=== PATIENT | female | born 1995 | race Caucasian/White ===

== ENCOUNTER 2023-11-26 15:54 | Emergency (ER) | payer MEDICAID, SELFPAY ==
[2023-11-26 15:57] VITALS: BP 126/74; PULSE 99; RESP 13; TEMP 36.5; O2SAT 99
[2023-11-26] MEDS: Ibuprofen 600 MG TAB PO (17:38)
[2023-11-26 18:20] LABS: Bilirubin Negative (Negative); Blood Negative (Negative); Clarity Clear (Clear); Glucose Negative (Negative); Ketones Negative (Negative); Leukocyte Esterase Negative (Negative); Nitrite Negative (Negative); Specific Gravity >= 1.030 (1.005-1.025); Urobilinogen 0.2 mg/dL (Up to 0.2); pH 5.5 (5-8)
[2023-11-26 18:22] LABS: Bacteria Negative HPF (Negative); C & S Indicated? No; Casts Negative LPF (Negative); Crystals Negative HPF (Negative); Epithelial Cells Rare HPF (Negative); Mucus Negative (Negative); RBC Negative HPF (0-2); WBC Negative HPF (0-5)
[2023-11-26] MEDS: Lidocaine 2% Jelly 11 ML SYR UR (18:55)
[2023-11-26] MEDS: predniSONE 20 MG TAB 40 MG PO (18:55)
[2023-11-26] MEDS: Cephalexin 500 MG CAP, 4 CAPS/BTL PO (18:55)
[2023-11-26 18:56] VITALS: BP 126/74; PULSE 99; RESP 13; TEMP 36.5; O2SAT 99
--- NOTE | 2023-11-26 19:48 | W.ED.GENAD ---
Discharge Plan Disposition Patient Disposition: Home Condition: Stable Discharge Details Clinical Impression: Acute vulvitis Primary Care Provider: None,None ED Provider: Ellyn Leal Home Meds and New Rx's Prescriptions: New prednisone 20 mg tablet 40 mg PO DAILY Qty: 8 0RF lidocaine HCl 2 % jelly in applicator 1 applic topical QID Qty: 125 0RF cephalexin 500 mg capsule 500 mg PO Q6H 7 Days Qty: 28 0RF Discharge Instructions Instructions: Vulvitis Additional Instructions: Medications as prescribed Cotton underwear only, use a pad and change frequently, keep area as dry as possible I will call you regarding your results if there are any abnormal findings, take the Keflex as prescribed, yogurt daily while on the antibiotic, apply the lidocaine jelly topically, apply a light layer and only as prescribed and take the prednisone as prescribed you may also apply some topical hydrocortisone as needed for pain, do not use for longer than 5 days Follow-up with women's health, and the list there number below Referrals: Yajaira Payne DO [OSTEOPATHIC DOCTOR] - HPI General Date/Time Provider Initiated Documentation: 11/26/23 16:06. HPI Narrative: This 27-year-old female states that she fell and some mild when she was cleaning up after the blood and approximately week later started with some redness and swelling to her labial region. She states has gotten worse in the past several days and she has significant pain. She tried Azo and Monistat without relief in her symptoms. She has not been sexually active for 2 years denies any chance of or sexually transmitted disease. She denies having prior symptoms in the past. She has not used any new creams or soaps. She denies any fever chills or any signs of systemic illness. Related Data Home Medications ?Medication ?Instructions ?Recorded ?Confirmed cephalexin 500 mg capsule 500 mg PO Q6H 7 days #28 caps 11/26/23 lidocaine HCl 2 % mucosal jelly in 1 applic topical QID #125 mL 11/26/23 applicator prednisone 20 mg tablet 40 mg (2 x 20 mg) PO DAILY #8 tabs 11/26/23 Previous Rx's ?Medication ?Instructions ?Recorded cephalexin 500 mg capsule 500 mg PO Q6H 7 days #28 caps 11/26/23 lidocaine HCl 2 % mucosal jelly in 1 applic topical QID #125 mL 11/26/23 applicator prednisone 20 mg tablet 40 mg (2 x 20 mg) PO DAILY #8 tabs 11/26/23 Allergies Allergy/AdvReac Type Severity Reaction Status Date / Time No Known Allergies Allergy Verified 11/26/23 16:01 General Stated Complaint: Abd Prob WOJCIECH: 3 Exam Narrative Exam Narrative: Well-appearing 27-year-old female with significant vulvitis, swelling and erythema to labia majora and minora, no obvious open wounds, serosanguineous drainage, no ulcerations, no crepitus Course Vital Signs Vital signs: Vital Signs Temperature 36.5 C 11/26/23 15:57 Pulse 99 H 11/26/23 15:57 Respiratory Rate 13 11/26/23 15:57 Blood Pressure 126/74 11/26/23 15:57 Pulse Oximetry 99 11/26/23 15:57 Temperature 36.5 C 11/26/23 18:56 Pulse 99 H 11/26/23 18:56 Respiratory Rate 13 11/26/23 18:56 Respiratory Effort Normal 11/26/23 18:56 Blood Pressure 126/74 11/26/23 18:56 Pulse Oximetry 99 11/26/23 18:56 Oxygen Delivery Method Room Air 11/26/23 18:56 Oxygen Flow Rate 0 11/26/23 15:57 Pain Level 8 11/26/23 18:56 Lab/Test Results Lab/Test Results: 11/26/23 17:00 Vaginal Wound Culture - Pending 11/26/23 17:00 Vaginal Gram Stain - Final 11/26/23 18:22 Vaginal Vaginitis Screen - Pending Laboratory Tests Range/Units 11/26/23 16:03 Urine Color (Yellow) Yellow Urine Clarity (Clear) Clear Urine pH (5-8) 5.5 Ur Specific [place] (1.005-1.025) >= 1.030 H Urine Protein (Neg-Trace) mg/dL 30 H Urine Ketones (Negative) mg/dL Negative Urine Blood (Negative) Negative Urine Nitrite (Negative) Negative Urine Bilirubin (Negative) Negative Urine Urobilinogen (Up to 0.2) mg/dL 0.2 Ur Leukocyte Esterase (Negative) Negative Urine RBC (0-2) HPF Negative Urine WBC (0-5) HPF Negative Ur Epithelial Cells (Negative) HPF Rare Urine Crystals (Negative) HPF Negative Urine Bacteria (Negative) HPF Negative Urine Casts (Negative) LPF Negative Urine Mucus (Negative) Negative Ur Culture Indicated? No Urine Glucose (Negative) mg/dL Negative Medical Decision Making 27-year-old female presenting with labial pain and swelling. No sign of abscess or ulcerations. Extremely low risk for sexually transmitted disease. [facility] path swab is pending to look for yeast or bacterial vaginosis. Patient started on Keflex and prednisone which will likely help with swelling, she will apply hydrocortisone topically for no more than 3 to 5 days She is encouraged to allow area to air dry is much as possible and take ibuprofen and Tylenol as needed for pain She was given Percocet and will refer to [facility] for reassessment this week Quality:SDOH Health Related Social Needs: No Data to Display PFSH All Active Problems (Updated 11/26/23 @ 18:24 by ENRRIQUE Villarreal) Acute vulvitis (Acute) Social History Smoking risk assessment performed?: No
--- NOTE | 2023-11-26 20:06 | NUR.NOTE ---
Pt placed on care management referral list for labia swelling to be seen as soon as possible, referral sent to [facility]
== END 2023-11-26 18:56 | disposition home or self-care (01) ==
LOC: ER 18:36
PROVIDERS: Emergency Provider Physician Assistant
DX: N77.1 Vaginitis, vulvitis and vulvovaginitis in diseases classified elsewhere; R10.30 Lower abdominal pain, unspecified
CPT/HCPCS: 99283; 81003; 81015; 87070; 87205; 87480; 87510; 87660; 99282; J7512

== ENCOUNTER 2023-12-05 09:32 | Outpatient (REF) | payer MEDICAID, SELFPAY ==
--- NOTE | 2023-12-05 09:30 | PAPFT_PTH ---
PATIENT: Alesha Craig LOC: [facility] U#:[id number] AGE/SX: 28/F ROOM: RE12/05/[address]: Avani Pan : 1995 BED: DIS: 12/05/2023 SPEC #: [id number] RECD: 12/05/23 13:11 STATUS: BREANN REAmauri #: [id number] LIGIA: 12/05/23 09:[address]: Avani Pan DEPT: [facility] Cytology RECD BY: Ellyn Mccullough ENTERED: 12/05/23 13:12 SP TYPE: PAPFT OTHR DR: Unknown,Unknown Tissues: 1 - CX/ENDOCX FOR PAP SMEARS Procedures: PAP THIN PREP/[facility] Screening HPV DNA PROBE Comments: [id number] (HPV 16 & 18/45)
[2023-12-06 12:20] LABS: Chlamydia Result Negative (Negative); GC Result Negative (Negative)
== END 2023-12-05 09:33 | disposition home or self-care (01) ==
LOC: LBN 09:32
PROVIDERS: Visit Provider Obstetrics & Gynecology Gynecology
DX: Z11.8 Encounter for screening for other infectious and parasitic diseases (principal)
CPT/HCPCS: 87491; 87591; 88142; 87624

== ENCOUNTER 2025-01-03 19:22 | Outpatient (REF) | payer MEDICAID, SELFPAY ==
[2025-01-07 11:20] LABS: Chlamydia Result Negative (Negative); GC Result Negative (Negative)
== END 2025-01-03 19:23 | disposition home or self-care (01) ==
LOC: LBN 19:22
PROVIDERS: Visit Provider Obstetrics & Gynecology
DX: Z11.3 Encounter for screening for infections with a predominantly sexual mode of transmission (principal)
CPT/HCPCS: 87491; 87591; 87480; 87510; 87660

== ENCOUNTER 2025-01-14 09:59 | Outpatient (REF) | payer MEDICAID, SELFPAY | END 2025-01-14 10:00 | disposition home or self-care (01) | LOC: LBN 09:59 | PROVIDERS: Visit Provider Obstetrics & Gynecology | DX: L85.9 Epidermal thickening, unspecified (principal) | CPT/HCPCS: 88305; 88312 ==

== ENCOUNTER 2025-01-22 02:23 | Outpatient (CLI) | payer MEDICAID, SELFPAY ==
--- NOTE | 2025-01-22 07:00 | DI.US_ITS ---
Exam(s) US BREAST RT COMPLETE MG MAMMO DIAGNOSTIC BI EXAM: MG MAMMO DIAGNOSTIC BI AND COMPLETE RIGHT BREAST ULTRASOUND CLINICAL HISTORY: Rt sided breast pain w/pt palpable mass,DENSE BREAST TISSUE,R92.30. TECHNIQUE: BILATERAL CC AND MLO mammographic images were obtained with 3D tomosynthesis technique and utilizing computer aided detection (CAD). Also performed spot compression exaggerated CC view of the right breast. COMPLETE RIGHT BREAST ULTRASOUND was performed including all 4 quadrants as well as the right axilla. COMPARISON: . This is a baseline study on this 29-year-old patient two has had chronic pain in the upper-outer quadrant of the right breast since age 11 and occasionally feels a lump in this region which vacillates in size. She claims it is presently small. She cannot determine if this conforms to premenstrual. As she has an IUD in place for years. FINDINGS: DIAGNOSTIC BILATERAL MAMMOGRAM: The fibroglandular tissue pattern is moderately dense in both breasts but most dense in the upper outer quadrant of the right breast. There are no significant focal mammographic findings in left breast. No spiculated masses nor malignant-appearing microcalcification groups. In the upper-outer quadrant of the opposite-right breast there is an area of asymmetric tissue measuring approximately 4 by 3 cm. Spot compression view of this area is somewhat difficult to determine if this is truly a mass or just asymmetric tissue. There are no malignant-appearing microcalcification groups in this region nor elsewhere in either breast. No architectural distortion or skin thickening-retraction. COMPLETE RIGHT BREAST ULTRASOUND: There is no evidence of solid or significant cystic lesions in all 4 quadrants. In the upper outer quadrant there is very dense tissue corresponding to the patient's area of clinical concern and corresponding to the finding on the mammogram discussed above. However, there is no discernible mass nor cysts at this level nor elsewhere in the breast. Scanning of the right axilla is negative for adenopathy. IMPRESSION: Asymmetric tissue in the upper-outer quadrant of the right breast which does not exhibit signs of discernible solid lesion nor cysts on ultrasound exam. This findings most probably benign asymmetric tissue. Patient has had symptoms in this region since age 11. No evidence of malignancy on conventional imaging. Appropriate follow-up is repeat right breast imaging in 6 months to determine stability, with earlier imaging if she feels this area is increasing in size. The patient was informed of the findings and follow-up recommendations by myself prior to leaving the department today. BI-RADS Category 3 - 6 month - Probably Benign Finding: Recommend follow-up mammography in 6 months Breast Density - Category C - The breast are heterogeneously dense, which may obscure small masses. Breast density Category C or D implies that the patient has dense breast tissue. Dense breast tissue can make it harder to find cancer on a mammogram. Dense breast tissue is also associated with an increased risk of breast cancer. This information about the result of the mammogram report was provided to the patient to raise their awareness. Use this report when you speak with the patient about their risks for breast cancer, which includes their family history. At that time, you may recommend additional screening tests (Ultrasound or MRI) as these tests may add significant information. A negative radiographic report should not delay biopsy if a dominant or clinically suspicious mass is present. Up to ten percent of cancers are not identified on mammography. A negative report may reinforce clinical impression. Adenosis and dense breasts may obscure an underlying neoplasm. False positive reports average 6 to 10%. Patient will receive a letter notifying them of these results.
== END 2025-01-22 02:43 ==
LOC: DI 02:23
PROVIDERS: Visit Provider Obstetrics & Gynecology
DX: Z12.31 Encounter for screening mammogram for malignant neoplasm of breast (principal); N63.11 Unspecified lump in the right breast, upper outer quadrant
CPT/HCPCS: 76642; 77062; 77066; G0279